=== PATIENT | female | born 2000 | race Caucasian/White ===

== ENCOUNTER → 2023-03-13 | Outpatient (CLI) | payer OTHER ==
--- NOTE | 2023-03-13 16:15 | US ---
EXAMINATION TYPE: Transabdominal DATE OF EXAM: 03/13/2023 3:52 PM COMPARISON: NONE CLINICAL INDICATION: Female, 22 years old with history of Z36.89 CONFIRM GESTATIONAL AGE AND VIABILIT Y; early ob, confirm dates, A1 EXAM PERFORMED: OBTA EXAM MEASUREMENTS: GESTATIONAL AGE / DATING Physician Established: ( 9 weeks/3 days) EDC: 10/13/2023 Dates by LMP: LMP unknown Dates by First Scan: No previous this is first scan Dates by Current Scan for: ( 8 weeks/2 days) EDC: 10/21/2023 MATERNAL ANATOMY Uterus: 10.0 x 5.3 x 4.9cm Right Ovary: 2.4 x 2.5 x 1.3cm Left Ovary: 2.9 x 2.7 x 2.2cm Post CDS / Adnexa: wnl Presence of free fluid: no Presence of corpus luteal cyst: left = 1.8 x 1.4 x 1.7cm Presence of subchorionic bleed: no GESTATION / SURVEY CRL: 1.8cm (8 weeks/2 days) MSD: wnl Yolk Sac (normal less than 6mm): 0.3cm Heart Rate: 165 bpm Rhythm: Normal IUP: Viable IUP Date of LMP: unknown Beta HcG (if available): not drawn Single live intrauterine gestation as gestational sac, yolk sac, and pole are seen. No free flu id in pelvis. Both ovaries are present. No suspicious extraovarian adnexal mass. Left ovary has 1.8 cm corpus lutea l cyst. IMPRESSION: Single live intrauterine gestation is present. Mean crown-rump length 1.8 cm correspondin g to 8 week 2 day old fetus.
== END | disposition home or self-care (01) ==
LOC: RADUSWWP 15:36
PROVIDERS: ATTEND Obstetrics & Gynecology
DX: Z36.89 Encounter for other specified antenatal screening (principal); Z3A.08 8 weeks gestation of pregnancy
CPT/HCPCS: 76801

== ENCOUNTER 2023-09-14 10:42 | Outpatient (CLI) | payer OTHER ==
[2023-09-14 11:47] LABS: ALT 15 U/L (4-34); AST 19 U/L (14-36); African American GFR (CKD) >90 (>60 ml/min/1.73 sqM); Blood Urea Nitrogen 4 mg/dL (7-17); LDH 174 U/L (120-246); Non-African American GFR(CKD) >90 (>60 ml/min/1.73 sqM); Uric Acid 4.3 mg/dL (3.7-7.4)
[2023-09-14 11:57] LABS: Appearance,Urine Clear (Clear); Color,Urine Colorless
[2023-09-14 11:58] LABS: Bilirubin,Urine Negative (Negative); Blood,Urine Negative (Negative); Glucose,Urine (UA) Negative (Negative); Ketones,Urine Negative (Negative); Leukocyte Esterase,Urine Negative (Negative); Nitrite,Urine Negative (Negative); PH, Urine 7.5 (5.0-8.0); Protein,Urine Negative (Negative); Specific Gravity,Urine <1.005 (1.001-1.035); Urobilinogen,Urine <2.0 mg/dL (<2.0)
[2023-09-14 12:00] LABS: Basophils % (A) 0 %; Eosinophils # (A) 0.1 k/uL (0-0.7); Eosinophils % (A) 1 %; HCT 35.2 % (34.0-46.0); HGB 12.3 gm/dL (11.4-16.0); Lymphocytes # (A) 1.4 k/uL (1.0-4.8); Lymphocytes % (A) 13 %; MCH 26.9 pg (25.0-35.0); MCHC 34.8 g/dL (31.0-37.0); MCV 77.3 fL (80.0-100.0); Mean Platelet Volume 8.5; Monocytes # (A) 0.5 k/uL (0-1.0); Monocytes % (A) 5 %; Neutrophils # (A) 8.1 k/uL (1.3-7.7); Neutrophils % (A) 80 %; Platelet Count 284 k/uL (150-450); RBC 4.55 m/uL (3.80-5.40); RDW 12.8 % (11.5-15.5); WBC 10.1 k/uL (3.8-10.6)
[2023-09-14 12:04] LABS: Creatinine,Urine Random 15.9 mg/dL; Protein/Creatinine Ratio,Urine 1.824
[2023-09-14] MEDS ORDERED: CALCIUM GLUCONATE 1 GM/10 ML VIAL IV PRN (12:44)
[2023-09-14] MEDS ORDERED: MAGNESIUM SULFATE GM 6 GM in SODIUM CHLORIDE 0.9% 100 ML IVPB ONE (12:44)
[2023-09-14] MEDS ORDERED: MAGNESIUM SULFATE-WATER PMX 20 GM in WATER FOR INJECTION 1 500ML.BAG IV SCH (12:45)
[2023-09-14] MEDS ORDERED: BETAMET ACET-BETAMETH SOD PHOS 6 MG/ML MDV IM SCH (13:00)
[2023-09-14] MEDS ORDERED: MAGNESIUM SULFATE 4 MEQ/ML 10ML VIAL ONE ×2 (13:05→13:28)
[2023-09-14] MEDS ORDERED: SODIUM CHLORIDE 0.9% 100 ML BAG ONE ×2 (13:05→13:28)
--- NOTE | 2023-09-14 13:25 | P.HPOB ---
History of Present Illness H&P Date: 09/14/23 Chief Complaint: Preeclampsia with severe features This is a 23-year-old female 2 para 0 with an estimated date of confinement of 10/21/2023, estimated gestational age of 34-5/7 weeks, who presents to labor and delivery after being seen in the office with elevated bl ood pressure at 154/92. She had a preeclamptic workup in triage and all labs were normal other than her protein to creatinine ratio was 1.8-4. Her blood pressures ranged from 148/88 up to 179/82. The highest diastolic was 104. Patient denies any headaches, blurry vision, or epigastric pain. She does complain of significant lower extremity swelling that has been worsening over the last few weeks. labs: Blood type-A+ Antibody screen-negative Rubella-immune RPR-nonreactive HIV-nonreactive Hepatitis C and a body-nonreactive Random glucose-123 Hepatitis B surface antigen-negative [id number], female One hour Glucola-132 Three-hour Glucola-only 1 value high GC/chlamydia/Trichomonas-negative Obstetrical history: . History of 1 miscarriage. Gynecologic history: History of chlamydia treated many years ago. 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 Review of Systems Constitutional: Denies chills, Denies fever Eyes: denies blurred vision, denies pain Ears, nose, mouth and throat: Denies headache, Denies sore throat Cardiovascular: Denies chest pain, Denies shortness of breath Respiratory: Denies cough Gastrointestinal: Denies abdominal pain, Denies diarrhea, Denies nausea, Denies vomiting Genitourinary: Reports , Denies abnormal vaginal bleeding Musculoskeletal: Reports low back pain Neurological: Denies numbness, Denies weakness Psychiatric: Denies anxiety, Denies depression Past Medical History Additional Past Medical History / Comment(s): Preeclampsia with severe features- just diagnosed History of Any Multi-Drug Resistant Organisms: None Reported Additional Past Surgical History / Comment(s): Excision of the cyst off of her right neck-2019 Past Psychological History: No Psychological Hx Reported Smoking Status: Former smoker Past Alcohol Use History: None Reported Past Drug Use History: None Reported - Past Family History Mother Family Medical History: Hypertension Medications and Allergies Home Medications Medication Instructions Recorded Confirmed Type Vit No.179/Iron/Folic 1 each PO DAILY 09/14/23 09/14/23 History [ Tablet] Allergies Allergy/AdvReac Type Severity Reaction Status Date / Time No Known Allergies Allergy Verified 09/14/23 11:05 Exam Osteopathic Statement: *. No significant issues noted on an osteopathic structural exam other than those noted in the History and Physical/Consult. Intake and Output 09/13/23 09/14/23 09/14/23 22:59 06:59 14:59 Other: Weight 108.862 kg Gen.: Well-developed well-nourished female in no acute distress HEENT: Within normal limits Heart: Regular rate and rhythm Lungs: Clear to auscultation bilaterally Abdomen: , nontender, fundal height 39 cm heart tones: Category 1, baseline 140s with accelerations and no decelerations noted. Contractions: Irregular Extremities: Negative Jared's, 2+ pitting edema, deep tendon reflexes-2 over 4 bilaterally Results Result Diagrams: 09/14/23 11:22 09/14/23 11:22 Abnormal Lab Results - Last 24 Hours (Table) 09/14/23 09/14/23 Range/Units 11:22 11:22 MCV 77.3 L (80.0-100.0) fL Neutrophils # 8.1 H (1.3-7.7) k/uL BUN 4 L (7-17) mg/dL Creatinine 0.34 L (0.52-1.04) mg/dL Assessment and Plan (1) Preeclampsia, severe Current Visit: Yes Status: Acute Code(s): O14.10 - SEVERE PRE-ECLAMPSIA, UNS PECIFIED TRIMESTER SNOMED Code(s): 34205471 (2) 34 weeks gestation of Current Visit: Yes Status: Acute Code(s): Z3A.34 - 34 WEEKS GESTATION OF SNOMED Code(s): 83269720 Plan: I have started the patient on magnesium sulfate seizure prophylaxis with 6 g bolus followed by 2 g per hour. Will give labetalol IV if necessary. Will also give Celestone 12 mg times one dose. I did speak with Dr. Bobo at [facility] in [place] and he has accepted transfer since she is under 35 weeks. They will proceed towards delivery once she arrives. I did speak with the patient and explained the need for transfer and all of her questions were answered.
[2023-09-14] MEDS ORDERED: LACTATED RINGERS 1,000 ML IV SCH (13:45)
[2023-09-14 15:03] VITALS: BP 166/101; PULSE 85; RESP 16; TEMP 97.4
== END 2023-09-14 14:10 ==
LOC: FBPOP 10:42
PROVIDERS: ATTEND Obstetrics & Gynecology
DX: O14.13 Severe pre-eclampsia, third trimester (principal); O09.293 Supervision of pregnancy with other poor reproductive or obstetric history, third trimester; Z3A.34 34 weeks gestation of pregnancy; Z87.891 Personal history of nicotine dependence
CPT/HCPCS: 59025; 96365; 96372; 82570; 84156; 82565; 83615; 84450; 84460; 84520; 84550; 85025; 81003; G0463; J3475 ×2; J0702; 99215

== ENCOUNTER 2023-09-19 21:40 | Outpatient (CLI) | payer OTHER ==
[2023-09-19 22:19] LABS: Creatinine,Urine Random 80.9 mg/dL; Protein/Creatinine Ratio,Urine 0.494
[2023-09-19 22:36] LABS: Basophils % (A) 0 %; Eosinophils # (A) 0.5 k/uL (0-0.7); Eosinophils % (A) 4 %; HGB 12.9 gm/dL (11.4-16.0); Lymphocytes # (A) 2.9 k/uL (1.0-4.8); Lymphocytes % (A) 22 %; MCH 26.1 pg (25.0-35.0); MCV 78.9 fL (80.0-100.0); Mean Platelet Volume 7.8; Monocytes # (A) 0.5 k/uL (0-1.0); Monocytes % (A) 4 %; Neutrophils # (A) 9.1 k/uL (1.3-7.7); Neutrophils % (A) 69 %; Platelet Count 430 k/uL (150-450); RBC 4.94 m/uL (3.80-5.40); WBC 13.2 k/uL (3.8-10.6)
[2023-09-19 22:47] LABS: ALT 30 U/L (4-34); AST 30 U/L (14-36); African American GFR (CKD) >90 (>60 ml/min/1.73 sqM); Blood Urea Nitrogen 18 mg/dL (7-17); LDH 234 U/L (120-246); Magnesium 1.9 mg/dL (1.6-2.3); Non-African American GFR(CKD) >90 (>60 ml/min/1.73 sqM); Uric Acid 6.5 mg/dL (3.7-7.4)
[2023-09-19 22:48] LABS: Appearance,Urine Clear (Clear); Color,Urine Yellow; Glucose,Urine (UA) Negative (Negative); Protein,Urine Trace (Negative); Specific Gravity,Urine 1.025 (1.001-1.035)
[2023-09-19 22:49] LABS: Bilirubin,Urine Negative (Negative); Blood,Urine Large (Negative); Ketones,Urine Negative (Negative); Leukocyte Esterase,Urine Negative (Negative); Nitrite,Urine Negative (Negative); Urobilinogen,Urine 0.2 mg/dL (<2.0)
[2023-09-19 22:51] LABS: Amorphous Sediment,Urine Rare /hpf; Hyaline Casts,Urine 10 /lpf (0-2); Mucus,Urine Rare /hpf; RBC,Urine 4 /hpf (0-5); Squamous Epithelial Cell,Urine 2 /hpf (0-4); WBC,Urine 7 /hpf (0-5)
[2023-09-19 23:04] LABS: INR 0.9 (<1.2); Partial Thromboplastin Time 26.9 sec (22.0-30.0); Prothrombin Time 9.7 sec (10.0-12.5)
[2023-09-19 23:23] VITALS: BP 152/96; RESP 18; TEMP 97
--- NOTE | 2023-09-26 11:33 | P.MSEPDOC ---
Presenting Problems - Arrival Data Date of Arrival on Unit: 09/19/23 Time of Arrival on Unit: 21:42 Mode of Transport: Ambulatory - Complaint OB-Reason for Admission/Chief Complaint: Other Comment: Elevated blood pressures Medical History - Information : 2 Para: 2 - Gestational Age Gestational Age by SEAN (wks/days): 35 Weeks and 3 Days - History Complications: Preeclampsia Review of Systems - Review of Systems Constitutional: No problems Breast: No problems ENT: No problems Cardiovascular: No problems Respiratory: No problems Gastrointestinal: No problems Genitourinary: No problems Musculoskeletal: No problems Neurological: No problems Skin: No problems Vital Signs - Temperature Temperature: 97 F Temperature Source: Temporal Artery Scan - Respirations Respiratory Rate: 18 Oxygen Delivery Method: Room Air O2 Sat by Pulse Oximetry: 99 - Blood Pressure Right Arm Blood Pressure: 152/96 Blood Pressure Mean: 114 Blood Pressure Source: Automatic Cuff Physician Notification - Physician Notified Physician Notified Date: 09/19/23 Physician Notified Time: 22:57 Physician: Dr. Faith New Order Received: Yes - Notification Comment Comment: Spoke with Dr. Faith,pt had called Dr. Faith prior to arrival to triage. RN reported on pt BPs and labs. Dr. Faith not concerned with either at this time. Orders recieved to discharge home. Pt to keep appointment in office on with Dr. Faith. Pt not to take BP at home unless symptomatic. Pt to increase dosage of procardia to 60mg once a day in AM. Maternal Triage Index - Maternal Triage Index Presenting for scheduled procedure w/no complaint: No - Stat/Priority 1 Stat Priority 1: No - Urgent/Priority 2 Urgent Priority 2: No - Prompt/Priority 3 Prompt Priority 3: No - Non-Urgent/Priority 4 Non-Urgent Priority 4: Yes Criteria Met for Priority 4: Pt is 4 days presenting with c/o increased blood pressures at home. Pt asymptomatic, sent to triage by Dr. Faith Disposition - Disposition OB Disposition: Triage, Discharge to home Discharge Date: 09/19/23 Discharge Time: 23:05 I agree with the RN Medical Screening Exam: Yes Case reviewed; plan agreed upon as documented in EMR&OBIX.: Yes Diagnosis: MILD TO MODERATE PRE-ECLAMPSIA, COMPLICATING THE PUERPERIUM
== END 2023-09-19 23:05 | disposition home or self-care (01) ==
LOC: FBPOP 21:40
PROVIDERS: ATTEND Obstetrics & Gynecology
DX: O14.05 Mild to moderate pre-eclampsia, complicating the puerperium (principal); Z3A.35 35 weeks gestation of pregnancy
CPT/HCPCS: 36415; 82570; 84156; 82565; 83615; 83735; 84450; 84460; 84520; 84550; 85025; 85384; 85610; 85730; 81001; G0463; 99213